=== PATIENT | male | born 1950 | race Caucasian/White ===

== ENCOUNTER 2016-10-29 11:56 | Emergency (ER) | payer MEDICARE ==
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
[2016-10-29] MEDS ORDERED: SODIUM CHLORIDE 0.9% 1,000 ML IV STA (14:09)
[2016-10-29] MEDS ORDERED: RX INFO: IV CONTRAST WAS GIVEN 1 EACH MISC MISCELLANE PRN (14:10)
[2016-10-29] MEDS ORDERED: MORPHINE SULFATE 2 MG/ML SYRINGE IVP ONE (14:12)
[2016-10-29] MEDS ORDERED: ONDANSETRON 4 MG in SODIUM CHLORIDE 0.9% 50 ML IVPB ONE (14:12)
[2016-10-29] MEDS ORDERED: ONDANSETRON 4 MG/2 ML VIAL IVP ONE (14:15)
[2016-10-29 14:44] LABS: Basophils % (A) 0 %; CH 31.1; CHCM 34.4; Eosinophils # (A) 0.1 k/uL (0-0.7); Eosinophils % (A) 2 %; HCT 44.6 % (39.0-53.0); HDW 2.85; HGB 15.4 gm/dL (13.0-17.5); Luc # (Auto) 0.11; Luc % (Auto) 1; Lymphocytes # (A) 1.1 k/uL (1.0-4.8); Lymphocytes % (A) 13 %; MCH 31.4 pg (25.0-35.0); MCHC 34.5 g/dL (31.0-37.0); MCV 90.9 fL (80.0-100.0); Mean Platelet Volume 7.4; Monocytes # (A) 0.4 k/uL (0-1.0); Monocytes % (A) 5 %; Neutrophils # (A) 6.6 k/uL (1.3-7.7); Neutrophils % (A) 79 %; RBC 4.91 m/uL (4.30-5.90); RDW 13.6 % (11.5-15.5); WBC 8.4 k/uL (3.8-10.6); WBC (Perox) 7.83
[2016-10-29 14:54] LABS: ALT 28 U/L (21-72); AST 26 U/L (17-59); Alkaline Phosphatase 121 U/L (38-126); Anion Gap 12 mmol/L; Blood Urea Nitrogen 24 mg/dL (9-20); Carbon Dioxide 24 mmol/L (22-30); Chloride 102 mmol/L (98-107); Glucose 188 mg/dL (74-99); INR 1.1 (<1.1); Non-African American GFR(MDRD) >60 (>60 ml/min/1.73 sqM); Potassium 4.4 mmol/L (3.5-5.1); Prothrombin Time 10.8 sec (9.0-12.0); Sodium 138 mmol/L (137-145); Total Bilirubin 1.3 mg/dL (0.2-1.3); Total Protein 7.2 g/dL (6.3-8.2)
--- NOTE | 2016-10-29 15:34 | XR ---
EXAMINATION TYPE: XR pelvis AP view , ONE VIEW DATE OF EXAM ORDERED: 10/29/2016 HISTORY: Pain. COMPARISON: Previous study dated 12/07/2015. FINDINGS: There is metallic shrapnel projecting over the iliac crest on the left. There are mild degenerative changes in the hips and lumbar spine. No acute fracture about the pelvis is seen. There is a stable phlebolith in the left hemipelvis. IMPRESSION: 1. NO ACUTE OSSEOUS LESION. 2. EVIDENCE OF OLD PENETRATING TRAUMA. 3. MILD DEGENERATIVE CHANGE IN THE HIPS AND SPINE.
--- NOTE | 2016-10-29 15:37 | XR ---
EXAMINATION TYPE: XR ribs RT w pa chest xray DATE OF EXAM: 10/29/2016 COMPARISON: 04/22/2016 HISTORY: Pain TECHNIQUE: PA view the chest and 5 views of the right ribs submitted. FINDINGS: Hyperinflation suggests COPD. No sizable pneumothorax. Lungs are clear. Heart size normal. There is a deformity of the lateral margin of the right seventh rib. Similar deformity seen involving the posterior lateral margin of the right eighth rib. There is some callus formation. IMPRESSION: 1. Healing fracture right seventh and eighth ribs as discussed above. 2. No sizable pneumothorax.
[2016-10-29 15:40] LABS: Appearance,Urine Clear (Clear); Bacteria,Urine Rare /hpf; Bilirubin,Urine Negative (Negative); Glucose,Urine (UA) 3+ (Negative); Ketones,Urine Trace (Negative); Leukocyte Esterase,Urine Negative (Negative); Mucus,Urine Occasional /hpf; Nitrite,Urine Negative (Negative); PH, Urine 5.5 (5.0-8.0); Particle Count 5855; Protein,Urine 1+ (Negative); RBC,Urine 3 /hpf (0-5); Specific Gravity,Urine 1.029 (1.001-1.035); UA Billing (MACRO vs. MICRO) MICRO; WBC,Urine 1 /hpf (0-5)
--- NOTE | 2016-10-29 16:25 | CT ---
EXAMINATION TYPE: CT brain marino ramirez con DATE OF EXAM: 10/29/2016 COMPARISON: Previous study dated 04/22/2016. HISTORY: Fall on 10/25/16. Possible head injury. Confusion per patient CT DLP: 1961 mGycm Automated exposure control for dose reduction was used. TECHNIQUE: CT scan of the head and cervical spine are performed without contrast. FINDINGS: BRAIN: There are generalized changes of sulcal prominence and ventriculomegaly compatible with atroph ic change. There is diffuse periventricular white matter lucency, compatible with chronic white matte r ischemic change. There is no acute focal lesion, mass effect or midline shift identified. I do not see evidence of intracranial blood. Visualized portions of the paranasal sinuses and mastoids are clear. No depressed skull fracture is s een. IMPRESSION: 1. NO ACUTE INTRACRANIAL ABNORMALITY. 2. ATROPHIC CHANGE. 3. CHRONIC WHITE MATTER ISCHEMIC CHANGE. CERVICAL SPINE: Visualized portions of the lungs are clear. Prevertebral soft tissues are normal. Vertebral body height and alignment are maintained. Atlantoaxial relationships are normal. There is d egenerative disc disease and hypertrophic spondylosis throughout the cervical spine with relative spa ring of C2-3. There is diffuse uncovertebral joint disease with relative sparing of C2-3 and C4-5. Th ere is facet arthropathy at C2-3, C3-4 and C4-5. No fractures are seen. IMPRESSION: 1. NO ACUTE OSSEOUS LESION. 2. FAIRLY EXTENSIVE DEGENERATIVE CHANGE.
[2016-10-29] MEDS ORDERED: METHOCARBAMOL 500 MG TAB PO STA (16:33)
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
[2016-10-29 17:14] VITALS: RESP 18
[2016-10-29 17:17] VITALS: BP 150/82; PULSE 81; TEMP 97.3
== END 2016-10-29 17:38 | disposition home or self-care (01) ==
LOC: EC 11:56
DX: S06.0X9A Concussion with loss of consciousness of unspecified duration, initial encounter (principal); S22.41XG Multiple fractures of ribs, right side, subsequent encounter for fracture with delayed healing; R10.31 Right lower quadrant pain; R11.0 Nausea; E11.9 Type 2 diabetes mellitus without complications; Z79.82 Long term (current) use of aspirin; Z79.84 Long term (current) use of oral hypoglycemic drugs; Z79.899 Other long term (current) drug therapy; Z86.69 Personal history of other diseases of the nervous system and sense organs; W01.10XA Fall on same level from slipping, tripping and stumbling with subsequent striking against unspecified object, initial encounter; Y92.89 Other specified places as the place of occurrence of the external cause
CPT/HCPCS: 36415; 93005; 80053; 84484; 85025; 85610; 81001; 71101; 72170; 72125; 70450; 74177; 99284; 96374; 96375; 96361; J2405; J2270; Q9967

== ENCOUNTER → 2016-11-04 | Outpatient (CLI) | payer MEDICARE ==
--- NOTE | 2016-11-04 10:00 | US ---
EXAMINATION TYPE: US abdomen comp/pelvis limited DATE OF EXAM: 11/04/2016 COMPARISON: Correlation CT 10/29/2016 CLINICAL HISTORY: 66-year-old male RUQ PAIN R10.31. RLQ pain TECHNIQUE: Multiple sonographic images of the abdomen and bladder were obtained. FINDINGS: Liver Length: 13.8 cm Gallbladder: Surgically absent CBD: 0.6 cm Spleen: 13.2 cm Right Kidney: 11.5 x 6.4 x 6.7 cm Left Kidney: 11.6 x 5.2 x 4.8 cm Pancreas: not well visualized due to bowel gas Liver: Homogeneous echotexture without focal lesion. Gallbladder: Surgically absent CBD: wnl Spleen: Upper limits of normal in size. Right Kidney: No hydronephrosis. There are multiple cysts largest measures 4.7 x 5.2 x 4.6 cm Left Kidney: No hydronephrosis. Upper IVC: wnl Abd Aorta: Fusiform dilatation of the distal abdominal aorta measuring up to 2.3 cm. No significant ectasia or aneurysm seen. Bladder: not well distended No abnormality noted RLQ or LLQ IMPRESSION: 1. Simple cysts within the right kidney measuring up to 5.2 cm. 2. Suboptimal visualization of the pancreas. 3. Additional scanning along the lower quadrants shows no specific sonographic abnormality.
== END | disposition home or self-care (01) ==
LOC: RADUSWWP 08:53
PROVIDERS: ATTEND Family Medicine
DX: N28.1 Cyst of kidney, acquired (principal)
CPT/HCPCS: 76700; 76857

== ENCOUNTER 2016-11-30 19:23 | Emergency (ER) | payer MEDICARE ==
[2016-11-30 19:41] VITALS: RESP 18
[2016-11-30] MEDS ORDERED: HYDROmorphone 1 MG/ML 1 ML SYRINGE IVP STA (20:26)
[2016-11-30] MEDS ORDERED: ONDANSETRON 4 MG/2 ML VIAL IVP STA (20:26)
--- NOTE | 2016-11-30 21:09 | XR ---
EXAMINATION TYPE: XR chest 2V DATE OF EXAM: 11/30/2016 COMPARISON: 10/29/2016 HISTORY: Chest pain. TECHNIQUE: Frontal and lateral views of the chest are obtained. FINDINGS: There is no focal air space opacity, pleural effusion, or pneumothorax seen. The cardiac silhouette size is within normal limits. The osseous structures are intact. Cholecystectomy clips a re seen within the right upper quadrant. IMPRESSION: No acute cardiopulmonary process.
--- NOTE | 2016-11-30 21:10 | XR ---
EXAMINATION TYPE: XR shoulder complete RT DATE OF EXAM: 11/30/2016 CLINICAL HISTORY: Shoulder pain. TECHNIQUE: Three views of the right shoulder are obtained. COMPARISON: None. FINDINGS: There is no acute fracture/dislocation evident in the right shoulder. The acromioclavicul ar and glenohumeral joint spaces appear within normal limits. The visualized ribs are intact and unr emarkable. IMPRESSION: There is no acute fracture or dislocation in the right shoulder.
--- NOTE | 2016-11-30 21:12 | XR ---
EXAMINATION TYPE: XR ribs RT DATE OF EXAM: 11/30/2016 COMPARISON: Chest radiograph of the same date HISTORY: Rib pain on the right. TECHNIQUE: Frontal, lateral, and oblique views of the right ribs were obtained. FINDINGS: There is no evidence of acute displaced rib fracture although there is a healing rib fractu re with partial callus formation at the lateral margin of rib 7 on the right. Pleural parenchymal sca rring is seen near the right heart border. Remaining visualized lung is unremarkable. IMPRESSION: Healing lateral right seventh rib fracture with callus formation. No acute displaced rib fracture.
--- NOTE | 2016-11-30 21:39 | XR ---
EXAMINATION TYPE: XR hand complete RT DATE OF EXAM: 11/30/2016 CLINICAL HISTORY: Right TECHNIQUE: Frontal, lateral and oblique images of the right hand are obtained. COMPARISON: None. FINDINGS: There is no acute fracture/dislocation evident in the right hand. There is narrowing of th e distal interphalangeal joint spaces with marginal osteophytes and similar findings in the first met acarpophalangeal joint. The overlying soft tissue appears unremarkable. IMPRESSION: 1. There is no acute fracture or dislocation in the right hand. 2. Mild osteoporotic changes of the right hand.
--- NOTE | 2016-11-30 21:54 | CT ---
EXAMINATION TYPE: CT brain wo con DATE OF EXAM: 11/30/2016 COMPARISON: 10/29/2016 HISTORY: Fall injury. CT DLP: 999.8 mGycm. Automated Exposure Control for Dose Reduction was Utilized. TECHNIQUE: CT scan of the head is performed without contrast. FINDINGS: There is no acute intracranial hemorrhage, mass effect, or midline shift identified. Ther e is symmetric ventricular and sulcal prominence related to age-related atrophy. Few scattered subcor tical areas of hypoattenuation as well as to a mild degree within the periventricular white matter ar e unchanged from the prior and likely relate to sequela of chronic microangiopathy. Frontoparietal cr aniotomy defect is noted, unchanged from the prior. There is atherosclerosis of the intracranial vasc ulature. The globes are intact and the visualized sinuses are clear. Dystrophic calcifications are s een within the right basal ganglia. IMPRESSION: 1. No acute intracranial hemorrhage, mass effect, or midline shift is seen. 2. Age-related volume loss and mild subcortical/periventricular white matter changes likely on the ba sis of chronic microangiopathy.
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
[2016-11-30 22:26] VITALS: BP 130/77; PULSE 63; TEMP 97.7
== END 2016-11-30 22:24 | disposition home or self-care (01) ==
LOC: EC 19:23
DX: S61.411A Laceration without foreign body of right hand, initial encounter (principal); S40.011A Contusion of right shoulder, initial encounter; S09.90XA Unspecified injury of head, initial encounter; R07.89 Other chest pain; R40.2412 Glasgow coma scale score 13-15, at arrival to emergency department; E11.9 Type 2 diabetes mellitus without complications; Z79.82 Long term (current) use of aspirin; Z79.84 Long term (current) use of oral hypoglycemic drugs; Z79.899 Other long term (current) drug therapy; W01.198A Fall on same level from slipping, tripping and stumbling with subsequent striking against other object, initial encounter; Y92.89 Other specified places as the place of occurrence of the external cause
CPT/HCPCS: 71020; 71100; 73030; 73130; 70450; 99284; 96374; 96375; J2405; J1170

== ENCOUNTER → 2017-02-01 | Outpatient (CLI) | payer MEDICARE ==
[2017-02-01 08:48] LABS: Basophils % (A) 1 %; CH 31.1; CHCM 32.8; Eosinophils # (A) 0.2 k/uL (0-0.7); Eosinophils % (A) 4 %; HCT 43.1 % (39.0-53.0); HDW 2.74; HGB 13.8 gm/dL (13.0-17.5); Luc # (Auto) 0.05; Luc % (Auto) 1; Lymphocytes # (A) 0.9 k/uL (1.0-4.8); Lymphocytes % (A) 19 %; MCH 30.4 pg (25.0-35.0); MCHC 31.9 g/dL (31.0-37.0); MCV 95.2 fL (80.0-100.0); Mean Platelet Volume 7.4; Monocytes # (A) 0.2 k/uL (0-1.0); Monocytes % (A) 4 %; Neutrophils # (A) 3.4 k/uL (1.3-7.7); Neutrophils % (A) 71 %; RBC 4.53 m/uL (4.30-5.90); WBC 4.8 k/uL (3.8-10.6); WBC (Perox) 5.11
[2017-02-01 11:24] LABS: Hemoglobin A1C 6.1 % (4.2-6.1)
[2017-02-01 13:31] LABS: ALT 32 U/L (21-72); AST 23 U/L (17-59); Alkaline Phosphatase 194 U/L (38-126); Anion Gap 9 mmol/L; Blood Urea Nitrogen 20 mg/dL (9-20); Calcium 9.9 mg/dL (8.4-10.2); Carbon Dioxide 26 mmol/L (22-30); Chloride 104 mmol/L (98-107); Glucose 101 mg/dL (74-99); Lithium 0.9 mmol/L; Non-African American GFR(MDRD) >60 (>60 ml/min/1.73 sqM); Potassium 4.8 mmol/L (3.5-5.1); Sodium 139 mmol/L (137-145); Total Bilirubin 0.7 mg/dL (0.2-1.3); Total Protein 6.4 g/dL (6.3-8.2)
[2017-02-03 14:30] LABS: Mis test requested (Blood) Doxepin
== END | disposition home or self-care (01) ==
LOC: LABWHC1 08:00
PROVIDERS: ATTEND Psychiatry & Neurology Pain Medicine
DX: G40.909 Epilepsy, unspecified, not intractable, without status epilepticus (principal); R41.82 Altered mental status, unspecified; T43.595S Adverse effect of other antipsychotics and neuroleptics, sequela
CPT/HCPCS: 84439; 80053; 83036; 80178; 84443; 85025; 36415; G0480; 80335

== ENCOUNTER → 2017-07-09 | Outpatient (CLI) | payer MEDICARE ==
--- NOTE | 2017-07-09 09:08 | XR ---
EXAMINATION TYPE: XR shoulder complete RT DATE OF EXAM: 07/09/2017 CLINICAL HISTORY: pain TECHNIQUE: Three views of the right shoulder are obtained. COMPARISON: November 30, 2016 FINDINGS: There is no acute fracture/dislocation evident. The acromioclavicular and glenohumeral mary kate int spaces appear within normal limits. The visualized ribs are intact and unremarkable. IMPRESSION: 1. There is no acute fracture or dislocation. ICD 10 NO FRACTURE, INITIAL EVALUATION
--- NOTE | 2017-07-09 09:24 | XR ---
EXAMINATION TYPE: XR elbow limited RT DATE OF EXAM: 07/09/2017 COMPARISON: 02/21/2009 HISTORY: Pain FINDINGS: Three views of the elbow demonstrate extensive postsurgical changes. Portion of the surgical device w ithin the radius appears to be outside the medullary cavity and should be correlated clinically. Ther e is be postoperative suspected cement within the soft tissues with surgical clips. Deformity of the elbow is likely postsurgical. Multiple small densities seen at the level the elbow joint likely is po stsurgical. No definite acute fracture. IMPRESSION: 1. The radial component of the prostheses appears to be dislodged from the medullary cavity and cysti c outside of the bone. This is a interval change from the x-ray of 2008. Soft tissue density likely r epresents bony cement from the postsurgical change.
== END | disposition home or self-care (01) ==
LOC: RADXRMAIN 07:45
PROVIDERS: ATTEND Physician Assistant
DX: M25.511 Pain in right shoulder (principal); M25.521 Pain in right elbow; Z96.621 Presence of right artificial elbow joint

== ENCOUNTER 2017-12-09 09:40 | Day surgery (SDC) | payer MEDICARE ==
[2017-12-07 11:30] VITALS: BMI 23.1
[2017-12-09 10:08] VITALS: TEMP 98.2
[2017-12-09] MEDS ORDERED: LIDOCAINE 1% 20 ML VIAL (10MG/ML) FOR IV START INTRADERMA ONE (10:12)
[2017-12-09] MEDS: LACTATED RINGERS 1,000 ML IV SCH ×2 (10:12→10:43)
[2017-12-09 10:17] LABS: Glucose,Whole Blood 223 mg/dL (75-99)
[2017-12-09] MEDS ORDERED: PROPOFOL 10 MG/ML 20 ML VIAL IV ONE (10:47)
--- NOTE | 2017-12-09 11:08 | P.PCN ---
Date of Procedure: 12/09/17 Procedure(s) Performed: BRIEF HISTORY: Patient is a 67-year-old pleasant male, scheduled for an elective colonoscopy as a part of screening for colorectal neoplasia. PROCEDURE PERFORMED: Colonoscopy. PREOPERATIVE DIAGNOSIS: Screening for colon cancer. IV sedation per Anesthesia. PROCEDURE: After informed consent was obtained, the patient, was brought into the endoscopy unit. IV sedation was administered by Anesthesia under continuous monitoring. Digital rectal examination was normal. Initially the Olympus CF- 160 flexible video colonoscope was then inserted in the rectum, gradually advanced into the cecum with moderate to severe difficulty. Careful examination was performed as the scope was gradually being withdrawn. Ileocecal valve and the appendiceal orifice were visualized and appeared normal. Prep was excellent. Mucosa of the cecum, ascending colon, transverse colon, descending colon, sigmoid colon, and rectum appeared normal. Retroflexion was performed in the rectum and no lesions were seen. The patient tolerated the procedure well. IMPRESSION: Normal-appearing colon from rectum to cecum with no evidence of colorectal . RECOMMENDATIONS: Findings of this examination were discussed with the patient as his family. He was advised to have a repeat screening colonoscopy in 10 years.
[2017-12-09 11:22] VITALS: RESP 18
[2017-12-09 11:27] LABS: Glucose,Whole Blood 199 mg/dL (75-99)
[2017-12-09 11:37] VITALS: BP 131/74; PULSE 75
== END 2017-12-09 11:44 | disposition home or self-care (01) ==
LOC: ORWHC2ENDO 09:40
PROVIDERS: ATTEND Internal Medicine Gastroenterology
DX: Z12.11 Encounter for screening for malignant neoplasm of colon (principal); I10 Essential (primary) hypertension; E78.5 Hyperlipidemia, unspecified; E11.9 Type 2 diabetes mellitus without complications; E07.9 Disorder of thyroid, unspecified; Z79.84 Long term (current) use of oral hypoglycemic drugs; Z79.82 Long term (current) use of aspirin; Z79.899 Other long term (current) drug therapy; Z79.890 Hormone replacement therapy
CPT/HCPCS: J2704; G0121

== ENCOUNTER → 2017-12-15 | Outpatient (CLI) | payer MEDICARE ==
[2017-12-15 11:54] LABS: T4, Free (Free Thyroxine) 1.06 ng/dL (0.78-2.19)
== END ==
LOC: LABWHC1 08:20
PROVIDERS: ATTEND Psychiatry & Neurology Neurology
DX: E03.9 Hypothyroidism, unspecified (principal)
CPT/HCPCS: 36415; 84439; 84443; 84481

== ENCOUNTER → 2019-03-31 | Outpatient (CLI) | payer MEDICARE ==
--- NOTE | 2019-03-31 15:39 | XR ---
EXAMINATION TYPE: XR elbow complete RT DATE OF EXAM: 03/31/2019 COMPARISON: 07/09/2017 HISTORY: Pain FINDINGS: Three views of the elbow demonstrate extensive postsurgical change with chronic deformities of the hu merus, radius and ulna. Soft tissue radial dense material seen lying outside of the bone of the ulna. The shaft component of the ulnar prostheses traverses the cortex and into the soft tissues outside o f the bony margin and medullary cavity. Surgical clips are noted. Correlate for positioning. There al so appears to be a degree of separation between the humeral component in the anterior cortex of the h umerus which should be correlated clinically. IMPRESSION: 1. As noted on the prior exam the shaft of the prostheses with reference the forearm again appears to be outside of the medullary cavity and displaced into the soft tissues. There is also radio opaque m aterial within the soft tissues which could be related to postsurgical cementing material and should be correlated for malposition of the hardware. Due to the deformed anatomy it is difficult to determi ne if this is dislodged from the medullary cavity of the ulna which is suspected or the radius, corre late with the surgical history.
== END | disposition home or self-care (01) ==
LOC: RADXRMAIN 15:13
PROVIDERS: ATTEND Student in an Organized Health Care Education/Training Program
DX: Z47.1 Aftercare following joint replacement surgery (principal); Z96.629 Presence of unspecified artificial elbow joint

== ENCOUNTER → 2019-04-18 | Outpatient (CLI) | payer MEDICARE ==
--- NOTE | 2019-04-18 13:19 | XR ---
EXAMINATION TYPE: XR shoulder complete RT DATE OF EXAM: 04/18/2019 CLINICAL HISTORY: Right shoulder pain. TECHNIQUE: Three views of the right shoulder are obtained including axillary view. COMPARISON: Prior right shoulder x-ray July 09, 2017. FINDINGS: Osseous structures redemonstrated demineralized. There is no acute fracture/dislocation ev ident in the right shoulder. Persistent moderate narrowing at acromioclavicular joint. Persistent mil d to moderate narrowing and mild spurring glenohumeral joint. Persistent partial visualization of senia gical change right elbow level. The visualized ribs are intact and unremarkable. IMPRESSION: As above. No significant change from prior.
== END | disposition home or self-care (01) ==
LOC: RADXRMAIN 12:49
PROVIDERS: ATTEND Family Medicine
DX: M25.811 Other specified joint disorders, right shoulder (principal)

== ENCOUNTER → 2019-12-21 | Outpatient (CLI) | payer MEDICARE ==
[2019-12-21 11:15] LABS: African American GFR (CKD) 64.1 (60.0-200.0); Albumin 4.8 g/dL (3.80-4.90); Albumin/Globulin Ratio 2.53 (1.60-3.17); Anion Gap 7.8 mmol/L (4.00-12.00); BUN/Creat Ratio 13.85 Ratio (12.00-20.00); Calcium 10.3 mg/dL (8.7-10.3); Carbon Dioxide 27.2 mmol/L (21.6-31.8); Globulin 1.9 g/dL (1.6-3.3); Non-African American GFR(CKD) 55.3 (60.0-200.0); Potassium 5.5 mmol/L (3.5-5.5); Total Bilirubin 0.9 mg/dL (0.2-1.2); Total Protein 6.7 g/dL (6.2-8.2)
== END | disposition home or self-care (01) ==
LOC: LABWHC1 07:01
PROVIDERS: ATTEND Internal Medicine Endocrinology, Diabetes & Metabolism
DX: E11.65 Type 2 diabetes mellitus with hyperglycemia (principal)
CPT/HCPCS: 36415; 80053; 84681

== ENCOUNTER → 2020-03-29 | Outpatient (CLI) | payer MEDICARE ==
[2020-03-29 11:40] LABS: African American GFR (CKD) 78.4 (60.0-200.0); Albumin 4.6 g/dL (3.80-4.90); Albumin/Globulin Ratio 2.56 (1.60-3.17); Anion Gap 10.1 mmol/L (4.00-12.00); Calcium 9.8 mg/dL (8.7-10.3); Carbon Dioxide 23.9 mmol/L (21.6-31.8); Chol/HDL Ratio 2.31; Globulin 1.8 g/dL (1.6-3.3); LDL Cholesterol,Calculated 55.6 mg/dL (0.0-131.0); Non-African American GFR(CKD) 67.7 (60.0-200.0); Potassium 4.4 mmol/L (3.5-5.5); Total Bilirubin 0.8 mg/dL (0.2-1.2); Total Protein 6.4 g/dL (6.2-8.2); VLDL Calculation 16.4 mg/dL (5.00-40.00)
[2020-03-29 11:45] LABS: Hemoglobin A1C 7.5 % (4.0-6.0)
[2020-03-29 13:30] LABS: Urine Creatinine 149.3 mg/dL
== END | disposition home or self-care (01) ==
LOC: LABWHC1 07:08
PROVIDERS: ATTEND Internal Medicine Endocrinology, Diabetes & Metabolism
DX: E11.65 Type 2 diabetes mellitus with hyperglycemia (principal)
CPT/HCPCS: 36415; 80053; 80061; 82043; 82570; 83036; 84443

== ENCOUNTER → 2020-07-02 | Outpatient (CLI) | payer MEDICARE ==
[2020-07-02 11:01] LABS: African American GFR (CKD) 64.1 (60.0-200.0); Albumin/Globulin Ratio 2.78 (1.60-3.17); Anion Gap 8.6 mmol/L (4.00-12.00); BUN/Creat Ratio 23.08 Ratio (12.00-20.00); Calcium 9.8 mg/dL (8.7-10.3); Carbon Dioxide 28.4 mmol/L (21.6-31.8); Chol/HDL Ratio 2.57; Globulin 1.8 g/dL (1.6-3.3); LDL Cholesterol,Calculated 66.2 mg/dL (0.0-131.0); Non-African American GFR(CKD) 55.3 (60.0-200.0); Potassium 4.7 mmol/L (3.5-5.5); Total Protein 6.8 g/dL (6.2-8.2); VLDL Calculation 21.8 mg/dL (5.00-40.00)
[2020-07-02 14:55] LABS: Urine Creatinine 181.7 mg/dL
[2020-07-02 15:10] LABS: Hemoglobin A1C 7.8 % (4.0-6.0)
== END | disposition home or self-care (01) ==
LOC: LABWHC1 07:05
PROVIDERS: ATTEND Internal Medicine Endocrinology, Diabetes & Metabolism
DX: E11.65 Type 2 diabetes mellitus with hyperglycemia (principal)
CPT/HCPCS: 36415; 80053; 80061; 82043; 82570; 83036; 84443

== ENCOUNTER → 2021-01-30 | Outpatient (CLI) | payer MEDICARE ==
[2021-01-30 19:29] LABS: African American GFR (CKD) 78.7 (60.0-200.0); Albumin 4.7 g/dL (3.8-4.9); Albumin/Globulin Ratio 2.34 (1.60-3.17); Anion Gap 15.4 mmol/L (4.00-12.00); BUN/Creat Ratio 25.41 Ratio (12.00-20.00); Blood Urea Nitrogen 27.7 mg/dL (9.0-27.0); Calcium 9.7 mg/dL (8.7-10.3); Carbon Dioxide 21.1 mmol/L (21.6-31.8); Chol/HDL Ratio 2.32 Ratio; HDL Cholesterol 56.8 mg/dL (40.00-60.00); LDL Cholesterol,Calculated 53.4 mg/dL (0.0-131.0); Non-African American GFR(CKD) 67.9 (60.0-200.0); Potassium 4.7 mmol/L (3.5-5.5); Prostate Specific Antigen 0.6 ng/mL (0.00-6.50); Total Bilirubin 0.9 mg/dL (0.30-1.20); Total Protein 6.7 g/dL (6.2-8.2); VLDL Calculation 21.8 mg/dL (5.00-40.00)
== END | disposition home or self-care (01) ==
LOC: LABWHC1 06:51
PROVIDERS: ATTEND Internal Medicine Endocrinology, Diabetes & Metabolism
DX: Z12.5 Encounter for screening for malignant neoplasm of prostate (principal); E11.65 Type 2 diabetes mellitus with hyperglycemia
CPT/HCPCS: 36415; 80053; 80061; 82043; 82570; 83036; 84153; 84443

== ENCOUNTER 2021-09-01 08:34 | Emergency (ER) | payer MEDICARE ==
[2021-09-01 08:40] VITALS: TEMP 98.2
[2021-09-01] MEDS ORDERED: HYDROcodone/APAP 5-325MG 1 EACH TAB PO STA (09:03)
--- NOTE | 2021-09-01 10:00 | XR ---
EXAMINATION TYPE: XR shoulder complete RT, XR clavicle RT DATE OF EXAM: 09/01/2021 CLINICAL HISTORY: Fall injury yesterday with pain. TECHNIQUE: Three views of the right shoulder are obtained. 2 views right clavicle. COMPARISON: Right shoulder x-ray April 18, 2019. FINDINGS: Osseous structures are demineralized. There is new acute comminuted slightly displaced frac ture through distal one third of the right clavicle. There is small 2.7 x 0.8 cm fracture fragment starks periorly identified. No AC joint separation. Overlying soft tissue is unremarkable. No additional acute fracture/dislocation evident in the right shoulder. Mild to moderate narrowing gl enohumeral joint redemonstrated. Distal acromion morphology unremarkable. The visualized ribs are in tact . IMPRESSION: There is new Acute comminuted slightly displaced fracture through distal one third of th e right clavicle.
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
--- NOTE | 2021-09-01 10:20 | XR ---
EXAMINATION TYPE: XR elbow complete RT DATE OF EXAM: 09/01/2021 COMPARISON: NONE HISTORY: Pain FINDINGS: Three views of the elbow demonstrate extensive postsurgical changes. There is soft tissue edema. Prev ious resection of the proximal radius noted. There is a lucency within the proximal ulna suspicious f or fracture line. Soft tissue ossification anterior to the elbow joint noted. IMPRESSION: 1. Findings are suspicious for a proximal ulnar fracture correlate clinically.
[2021-09-01] MEDS ORDERED: HYDROmorphone 1 MG/ML 1 ML SYRINGE IM STA (10:31)
[2021-09-01 10:42] VITALS: BP 112/83; PULSE 81; RESP 18
== END 2021-09-01 11:23 | disposition home or self-care (01) ==
LOC: EC 08:34
DX: S42.031A Displaced fracture of lateral end of right clavicle, initial encounter for closed fracture (principal); E11.9 Type 2 diabetes mellitus without complications; Z79.84 Long term (current) use of oral hypoglycemic drugs; W01.0XXA Fall on same level from slipping, tripping and stumbling without subsequent striking against object, initial encounter
CPT/HCPCS: 73000; 73030; 73080; 99283; 29105; 96372; J1170

== ENCOUNTER → 2021-10-01 | Outpatient (CLI) | payer MEDICARE ==
[2021-10-01 14:32] LABS: Basophils # (A) 0.03 X 10*3/uL (0.00-0.10); Basophils % (A) 0.8 %; Eosinophils # (A) 0.11 X 10*3/uL (0.04-0.35); Eosinophils % (A) 2.8 %; HCT 50.3 % (39.6-50.0); HGB 16.1 g/dL (13.0-17.0); Immature Grans, Automated 0.3 %; Lymphocytes # (A) 1.09 X 10*3/uL (0.90-5.00); Lymphocytes % (A) 27.5 %; MCV 96.7 fL (80.0-97.0); Mean Platelet Volume 11.2 fL (9.5-12.2); Monocytes # (A) 0.24 X 10*3/uL (0.20-1.00); Monocytes % (A) 6.1 %; NRBC Per 100 WBC 0 /100 WBCS (0.0-0.0); Neutrophils # (A) 2.48 X 10*3/uL (1.80-7.70); Neutrophils % (A) 62.5 %; Platelet Count 126 X 10*3/uL (140-440); RDW 14.3 % (11.5-14.5); WBC 3.96 X 10*3/uL (4.50-10.00)
[2021-10-01 15:02] LABS: ALT 39 U/L (10-49); AST 34 U/L (14-35); African American GFR (CKD) 78.2 (60.0-200.0); Albumin 4.7 g/dL (3.8-4.9); Albumin/Globulin Ratio 2.65 (1.60-3.17); Alkaline Phosphatase 106 U/L (41-126); BUN/Creat Ratio 22.94 Ratio (12.00-20.00); Calcium 9.6 mg/dL (8.7-10.3); Carbon Dioxide 25.8 mmol/L (20.0-27.5); Chloride 103 mmol/L (96-109); Chol/HDL Ratio 2.02 Ratio; Globulin 1.8 g/dL (1.6-3.3); Glucose 193 mg/dL (70-110); LDL Cholesterol,Calculated 48.5 mg/dL (0.0-131.0); Non-African American GFR(CKD) 67.5 (60.0-200.0); Potassium 4.7 mmol/L (3.5-5.5); Sodium 142 mmol/L (135-145); Total Protein 6.5 g/dL (6.2-8.2); VLDL Calculation 14.04 mg/dL (5.00-40.00)
[2021-10-01 18:45] LABS: Microalbumin Creatinine Ratio <30 mg/g Creat (0-30)
== END | disposition home or self-care (01) ==
LOC: LABWHC1 07:01
PROVIDERS: ATTEND Family Medicine
DX: E11.65 Type 2 diabetes mellitus with hyperglycemia (principal); D64.9 Anemia, unspecified
CPT/HCPCS: 36415; 80053; 80061; 82043; 82570; 83036; 84443; 85025

== ENCOUNTER → 2022-01-29 | Outpatient (CLI) | payer MEDICARE ==
[2022-01-29 14:52] LABS: T4, Free (Free Thyroxine) 1.31 ng/dL (0.800-1.800)
== END | disposition home or self-care (01) ==
LOC: LABWHC1 08:53
PROVIDERS: ATTEND Psychiatry & Neurology Neurology
DX: E03.9 Hypothyroidism, unspecified (principal)
CPT/HCPCS: 36415; 84439; 84443

== ENCOUNTER → 2022-08-28 | Outpatient (CLI) | payer MEDICARE ==
[2022-08-28 11:34] LABS: ALT 39 U/L (10-49); AST 33 U/L (14-35); Albumin 4.8 g/dL (3.8-4.9); Albumin/Globulin Ratio 2.45 (1.60-3.17); Alkaline Phosphatase 92 U/L (41-126); Blood Urea Nitrogen 26.2 mg/dL (9.0-27.0); Carbon Dioxide 25.5 mmol/L (20.0-27.5); Chloride 106 mmol/L (96-109); Chol/HDL Ratio 2.17 Ratio; Glucose 164 mg/dL (70-110); LDL Cholesterol,Calculated 57.8 mg/dL (0.0-131.0); Non-African American GFR(CKD) 61.3 (60.0-200.0); Potassium 5.1 mmol/L (3.5-5.5); Sodium 144 mmol/L (135-145); Total Protein 6.8 g/dL (6.2-8.2); VLDL Calculation 17.64 mg/dL (5.00-40.00)
[2022-08-28 12:29] LABS: Microalbumin Creatinine Ratio <30 mg/g Creat (0-30)
== END | disposition home or self-care (01) ==
LOC: LABWHC1 06:38
PROVIDERS: ATTEND Internal Medicine Endocrinology, Diabetes & Metabolism
DX: Z12.5 Encounter for screening for malignant neoplasm of prostate (principal); E11.65 Type 2 diabetes mellitus with hyperglycemia
CPT/HCPCS: 80061; 80053; 84443; 82043; 82570; 83036; 36415; G0103

== ENCOUNTER → 2022-10-26 | Outpatient (CLI) | payer MEDICARE ==
[2022-10-26 11:28] LABS: ALT 36 U/L (10-49); AST 35 U/L (14-35); Albumin 4.8 d/dL (3.8-4.9); Albumin/Globulin Ratio 2.29 Ratio (1.60-3.17); Alkaline Phosphatase 97 U/L (41-126); BUN/Creat Ratio 18.83 Ratio (12.00-20.00); Blood Urea Nitrogen 22.6 mg/dL (9.0-27.0); C-Peptide 0.94 ng/mL (0.81-3.85); Carbon Dioxide 23.3 mmol/L (21.6-31.8); Chloride 103 mmol/L (96-109); Globulin 2.1 d/dL (1.6-3.3); Glucose 156 mg/dL (70-110); Potassium 4.8 mmol/L (3.5-5.5); Sodium 141 mmol/L (135-145); Total Protein 6.9 d/dL (6.2-8.2)
== END | disposition home or self-care (01) ==
LOC: LABWHC1 06:56
PROVIDERS: ATTEND Internal Medicine Endocrinology, Diabetes & Metabolism
DX: E11.65 Type 2 diabetes mellitus with hyperglycemia (principal)
CPT/HCPCS: 36415; 80053; 83519; 84681

== ENCOUNTER → 2023-02-01 | Outpatient (CLI) | payer MEDICARE ==
[2023-02-01 11:48] LABS: ALT 35 U/L (10-49); AST 35 U/L (14-35); Albumin 4.6 d/dL (3.8-4.9); Albumin/Globulin Ratio 2.42 Ratio (1.60-3.17); Alkaline Phosphatase 110 U/L (41-126); BUN/Creat Ratio 22.33 Ratio (12.00-20.00); Blood Urea Nitrogen 26.8 mg/dL (9.0-27.0); Calcium 9.6 mg/dL (8.7-10.3); Carbon Dioxide 23.7 mmol/L (21.6-31.8); Chloride 103 mmol/L (96-109); Chol/HDL Ratio 1.82 Ratio; Globulin 1.9 d/dL (1.6-3.3); Glucose 201 mg/dL (70-110); LDL Cholesterol,Calculated 45.8 mg/dL (0.0-131.0); Potassium 4.6 mmol/L (3.5-5.5); Sodium 139 mmol/L (135-145); Total Bilirubin 0.8 mg/dL (0.3-1.2); Total Protein 6.5 d/dL (6.2-8.2); VLDL Calculation 10.92 mg/dL (5.00-40.00)
[2023-02-01 19:25] LABS: Microalbumin Creatinine Ratio <17 mg/g Cr (0-30); Urine Creatinine 70.7 mg/dL (39.0-259.0)
== END | disposition home or self-care (01) ==
LOC: LABWHC1 06:46
PROVIDERS: ATTEND Internal Medicine Endocrinology, Diabetes & Metabolism
DX: E11.65 Type 2 diabetes mellitus with hyperglycemia (principal)
CPT/HCPCS: 36415; 80053; 80061; 82043; 82570; 83036; 84443

== ENCOUNTER → 2023-08-05 | Outpatient (CLI) | payer MEDICARE ==
[2023-08-05 11:54] LABS: Microalbumin Creatinine Ratio <11 mg/g Cr (0-30)
[2023-08-05 12:04] LABS: ALT 50 U/L (10-49); AST 36 U/L (14-35); Albumin 4.8 g/dL (3.8-4.9); Albumin/Globulin Ratio 2.29 Ratio (1.60-3.17); Alkaline Phosphatase 99 U/L (41-126); BUN/Creat Ratio 27.09 Ratio (12.00-20.00); Blood Urea Nitrogen 29.8 mg/dL (9.0-27.0); Calcium 9.9 mg/dL (8.7-10.3); Carbon Dioxide 23.3 mmol/L (21.6-31.8); Chloride 105 mmol/L (96-109); Chol/HDL Ratio 2.23 Ratio; Globulin 2.1 g/dL (1.6-3.3); Glucose 176 mg/dL (70-110); LDL Cholesterol,Calculated 70.2 mg/dL (0.0-131.0); Potassium 4.9 mmol/L (3.5-5.5); Sodium 142 mmol/L (135-145); Total Bilirubin 0.8 mg/dL (0.3-1.2); Total Protein 6.9 g/dL (6.2-8.2); VLDL Calculation 16.82 mg/dL (5.00-40.00)
== END | disposition home or self-care (01) ==
LOC: LABWHC1 06:55
PROVIDERS: ATTEND Internal Medicine Endocrinology, Diabetes & Metabolism
DX: E11.65 Type 2 diabetes mellitus with hyperglycemia (principal)
CPT/HCPCS: 36415; 80053; 80061; 82043; 82570; 83036; 84443

== ENCOUNTER → 2023-11-06 | Outpatient (CLI) | payer MEDICARE ==
[2023-11-06 12:56] LABS: Microalbumin Creatinine Ratio <11 mg/g Cr (0-30)
[2023-11-06 13:30] LABS: ALT 40 U/L (10-49); AST 33 U/L (14-35); Albumin 4.6 g/dL (3.8-4.9); Albumin/Globulin Ratio 2.56 Ratio (1.60-3.17); Alkaline Phosphatase 94 U/L (41-126); BUN/Creat Ratio 20.91 Ratio (12.00-20.00); Calcium 9.4 mg/dL (8.7-10.3); Carbon Dioxide 24.8 mmol/L (21.6-31.8); Chloride 102 mmol/L (96-109); Globulin 1.8 g/dL (1.6-3.3); Glucose 138 mg/dL (70-110); LDL Cholesterol,Calculated 48.5 mg/dL (0.0-131.0); Potassium 4.6 mmol/L (3.5-5.5); Sodium 140 mmol/L (135-145); Total Bilirubin 0.9 mg/dL (0.3-1.2); Total Protein 6.4 g/dL (6.2-8.2); VLDL Calculation 12.54 mg/dL (5.00-40.00)
== END | disposition home or self-care (01) ==
LOC: LABWHC1 07:28
PROVIDERS: ATTEND Internal Medicine Endocrinology, Diabetes & Metabolism
DX: E11.65 Type 2 diabetes mellitus with hyperglycemia (principal)
CPT/HCPCS: 36415; 80053; 80061; 82043; 82570; 83036; 84443

== ENCOUNTER → 2024-03-13 | Outpatient (CLI) | payer MEDICARE ==
[2024-03-13 10:36] LABS: ALT 44 U/L (10-49); AST 75 U/L (14-35); Albumin 4.4 g/dL (3.8-4.9); Albumin/Globulin Ratio 2.59 Ratio (1.60-3.17); Alkaline Phosphatase 91 U/L (41-126); Blood Urea Nitrogen 18.5 mg/dL (9.0-27.0); Calcium 9.3 mg/dL (8.7-10.3); Carbon Dioxide 24.2 mmol/L (21.6-31.8); Chloride 104 mmol/L (96-109); Chol/HDL Ratio 1.86 Ratio; Globulin 1.7 g/dL (1.6-3.3); Glucose 165 mg/dL (70-110); Potassium 4.5 mmol/L (3.5-5.5); Prostate Specific Antigen 0.71 ng/mL (0.000-6.500); Sodium 140 mmol/L (135-145); Total Protein 6.1 g/dL (6.2-8.2); VLDL Calculation 18.12 mg/dL (5.00-40.00)
[2024-03-13 11:01] LABS: Microalbumin Creatinine Ratio <12 mg/g Cr (0-30); Urine Creatinine 96.9 mg/dL (39.0-259.0)
== END | disposition home or self-care (01) ==
LOC: LABWHC1 06:46
PROVIDERS: ATTEND Internal Medicine Endocrinology, Diabetes & Metabolism
DX: E11.65 Type 2 diabetes mellitus with hyperglycemia (principal)
CPT/HCPCS: 36415; 80053; 80061; 82043; 82570; 83036; 84153; 84443

== ENCOUNTER → 2024-03-18 | Outpatient (CLI) | payer MEDICARE ==
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
== END | disposition home or self-care (01) ==
LOC: RADXRMAIN 11:53
PROVIDERS: ATTEND Physician Assistant
DX: Z47.1 Aftercare following joint replacement surgery (principal); Z96.629 Presence of unspecified artificial elbow joint

== ENCOUNTER → 2024-07-15 | Outpatient (CLI) | payer MEDICARE ==
[2024-07-15 13:59] LABS: Chol/HDL Ratio 2.18 Ratio; LDL Cholesterol,Calculated 48.2 mg/dL (0.0-131.0)
[2024-07-15 14:00] LABS: ALT 34 U/L (10-49); AST 31 U/L (14-35); Albumin 4.6 g/dL (3.8-4.9); Albumin/Globulin Ratio 2.42 Ratio (1.60-3.17); Alkaline Phosphatase 84 U/L (41-126); BUN/Creat Ratio 20.09 Ratio (12.00-20.00); Blood Urea Nitrogen 22.1 mg/dL (9.0-27.0); Calcium 9.6 mg/dL (8.7-10.3); Carbon Dioxide 24.7 mmol/L (21.6-31.8); Chloride 105 mmol/L (96-109); Globulin 1.9 g/dL (1.6-3.3); Glucose 153 mg/dL (70-110); Potassium 4.7 mmol/L (3.5-5.5); Sodium 142 mmol/L (135-145); Total Protein 6.5 g/dL (6.2-8.2)
[2024-07-15 14:51] LABS: Microalbumin Creatinine Ratio <12 mg/g Cr (0-30)
== END | disposition home or self-care (01) ==
LOC: LABWHC1 07:34
PROVIDERS: ATTEND Internal Medicine Endocrinology, Diabetes & Metabolism
DX: E11.65 Type 2 diabetes mellitus with hyperglycemia (principal)
CPT/HCPCS: 36415; 80053; 80061; 82043; 82570; 83036; 84443

== ENCOUNTER → 2024-11-01 | Outpatient (CLI) | payer MEDICARE ==
[2024-11-01 10:48] LABS: ALT 28 U/L (10-49); AST 28 U/L (14-35); Albumin 4.5 g/dL (3.8-4.9); Albumin/Globulin Ratio 2.37 Ratio (1.60-3.17); Alkaline Phosphatase 90 U/L (41-126); Anion Gap 11.80 mmol/L (4.00-12.00); BUN/Creat Ratio 24.75 Ratio (12.00-20.00); Blood Urea Nitrogen 29.7 mg/dL (9.0-27.0); Calcium 9.6 mg/dL (8.7-10.3); Carbon Dioxide 24.2 mmol/L (21.6-31.8); Chloride 104 mmol/L (96-109); Globulin 1.9 g/dL (1.6-3.3); Glucose 161 mg/dL (70-110); Potassium 4.8 mmol/L (3.5-5.5); Sodium 140 mmol/L (135-145); Total Protein 6.4 g/dL (6.2-8.2)
== END | disposition home or self-care (01) ==
LOC: LABWHC1 06:51
PROVIDERS: ATTEND Internal Medicine Endocrinology, Diabetes & Metabolism
DX: E11.65 Type 2 diabetes mellitus with hyperglycemia (principal)
CPT/HCPCS: 36415; 80053; 83036; 84681